=== PATIENT | male | born 1970 | race Hispanic/Latino ===

== ENCOUNTER 2018-03-08 12:09 | Emergency (ER) | payer OTHER ==
--- NOTE | 2018-03-08 14:38 | EDPHYS ---
Physician Documentation [facility] Name: Franklin Jacobsen Age: 48 yrs Sex: Male : 1970 Arrival Date: 03/08/2018 Time: 12:17 Bed 10 Private MD: ED Physician Aristeo Cortez HPI: 03/08 14:15 This 48 yrs old Male presents to ER via Ambulatory with complaints of Poison cp Elenita. 14:15 The patient's rash thought to be caused by Contact allergy. The rash is located on the cp body diffusely. The rash can be described as erythematous, papular. Onset: The symptoms/episode began/occurred 4 day(s) ago. 14:15 Associated signs and symptoms: Pertinent positives: itching, Pertinent negatives: cp burning sensation, difficulty breathing, fever, wheezing. Severity of symptoms: in the emergency department the symptoms are unchanged despite home interventions. Treatment given at home: OTC lotion/cream. Historical: - Allergies: 12:34 No Known Allergies; sg - Home Meds: 12:34 None [Active]; sg - PMHx: 12:34 None; sg - PSHx: 12:34 None; sg - Immunization history:: Adult Immunizations not up to date. - Social history:: Smoking status: Patient/guardian denies using tobacco. - Ebola Screening: : Patient negative for fever greater than or equal to 101.5 degrees Fahrenheit, and additional compatible Ebola Virus Disease symptoms Patient denies exposure to infectious person Patient denies travel to an Ebola-affected area in the 21 days before illness onset No symptoms or risks identified at this time. ROS: 14:20 Constitutional: Negative for body aches, chills, fever, poor PO intake. cp 14:20 Eyes: Negative for injury, pain, redness, and discharge. cp 14:20 ENT: Negative for drainage from ear(s), ear pain, sore throat, difficulty swallowing, difficulty handling secretions. 14:20 Cardiovascular: Negative for chest pain. 14:20 Respiratory: Negative for cough, shortness of breath, wheezing. 14:20 Abdomen/GI: Negative for abdominal pain, nausea, vomiting, and diarrhea. 14:20 Skin: Positive for rash, diffusely, Negative for abscesses, cellulitis. 14:20 Neuro: Negative for altered mental status, headache, weakness. 14:20 All other systems are negative. Exam: 14:25 Constitutional: The patient appears in no acute distress, alert, awake, non-toxic, well cp developed, well nourished. 14:25 Head/Face: Normocephalic, atraumatic. cp 14:25 Eyes: Periorbital structures: appear normal, Conjunctiva: normal, no exudate, no injection, Lids and lashes: appear normal, bilaterally. 14:25 ENT: External ear(s): are unremarkable, Nose: is normal, Mouth: Lips: moist, Oral mucosa: pink and intact, moist, Posterior pharynx: is normal, airway is patent, no erythema, no exudate, Voice: is normal. 14:25 Chest/axilla: Inspection: normal, Palpation: is normal, no crepitus, no tenderness. 14:25 Cardiovascular: Rate: normal, Rhythm: regular. 14:25 Respiratory: the patient does not display signs of respiratory distress, Respirations: normal, no use of accessory muscles, no retractions, no splinting, no tachypnea. 14:25 Abdomen/GI: Exam negative for discomfort, distension, guarding, Inspection: abdomen appears normal. 14:25 Skin: consistent with contact dermatitis, and is diffusely located. Vital Signs: 12:33 BP 147 / 82; Pulse 55; Resp 17; Pulse Ox 100% ; Weight 72.57 kg (R); Pain 6/10; sg MDM: 13:31 Patient medically screened. cp 14:30 Differential diagnosis: impetigo, varicella, allergic reaction, contact dermatitis. cp 14:37 Data reviewed: vital signs, nurses notes, and as a result, I will discharge patient. cp 14:37 Counseling: I had a detailed discussion with the patient and/or guardian regarding: the cp historical points, exam findings, and any diagnostic results supporting the discharge/admit diagnosis, to return to the emergency department if symptoms worsen or persist or if there are any questions or concerns that arise at home. Administered Medications: 14:40 Drug: SOLU-Medrol 80 mg Route: IM; Site: right deltoid; iw 15:06 Follow up: Response: No adverse reaction; Marked relief of symptoms mg2 Disposition: 03/08/18 14:38 Discharged to Home. Impression: Irritant contact dermatitis - Poison elneita. - Condition is Stable. - Discharge Instructions: Poison Elenita Dermatitis. - Prescriptions for Vistaril 25 mg Oral capsule - take 2 capsule by ORAL route At bedtime As needed as needed for itching. Do not combine with benadryl; 30 capsule. Triamcinolone Acetonide 0.5 % Topical Cream - apply 1 application by TOPICAL route 2 times per day As needed apply to areas of rash, except face, as needed for upto 7 days; 2 tube. Prednisone 20 mg Oral Tablet - take 2 tablets by ORAL route once daily for 5 days then 20 mg daily for 3 days, then 10 mg daily for 2 days, then 5 mg daily for 2 days; 15 tablet. - Work release form, Medication Reconciliation Form, Thank You Letter, Antibiotic Education, Prescription Opioid Use form. - Follow up: Private Physician; When: 1 week; Reason: rash persists. - Problem is new. - Symptoms have improved. Addendum: 03/13/2018 03:36 Co-signature as Attending Physician, Aristeo Cortez MD Available for consultation at p s1 all times . Signatures: Rui Marin RN RN sg Jada Jones RN RN iw Ralph Garcia PA PA cp Aristeo Cortez MD MD ps1 Angelo Herrera RN RN mg2 Corrections: (The following items were deleted from the chart) 03/08 15:08 14:38 03/08/2018 14:38 Discharged to Home. Impression: Irritant contact dermatitis - mg2 Poison elenita. Condition is Stable. Forms are Medication Reconciliation Form, Thank You Letter, Antibiotic Education, Prescription Opioid Use. Follow up: Private Physician; When: 1 week; Reason: rash persists. Problem is new. Symptoms have improved. cp
--- NOTE | 2018-03-08 14:38 | ER ---
Nurse's Notes [facility] Name: Franklin Jacobsen Age: 48 yrs Sex: Male : 1970 Arrival Date: 03/08/2018 Time: 12:17 Bed 10 Private MD: Diagnosis: Irritant contact dermatitis-Poison arlene Presentation: 03/08 12:31 Presenting complaint: Patient states: Rash that is red and itchy to BUE, BLE, reports sg taking OTC medication but no improvement since wednesday. Transition of care: patient was not received from another setting of care. Onset of symptoms was March 08, 2018. Risk Assessment: Do you want to hurt yourself or someone else? Patient reports no desire to harm self or others. Initial Sepsis Screen: Does the patient meet any 2 criteria? No. Patient's initial sepsis screen is negative. Does the patient have a suspected source of infection? No. Patient's initial sepsis screen is negative. Care prior to arrival: None. 12:31 Method Of Arrival: Ambulatory sg 12:31 Acuity: FERNANDO 4 sg Historical: - Allergies: 12:34 No Known Allergies; sg - Home Meds: 12:34 None [Active]; sg - PMHx: 12:34 None; sg - PSHx: 12:34 None; sg - Immunization history:: Adult Immunizations not up to date. - Social history:: Smoking status: Patient/guardian denies using tobacco. - Ebola Screening: : Patient negative for fever greater than or equal to 101.5 degrees Fahrenheit, and additional compatible Ebola Virus Disease symptoms Patient denies exposure to infectious person Patient denies travel to an Ebola-affected area in the 21 days before illness onset No symptoms or risks identified at this time. Screenin:07 Abuse screen: Denies threats or abuse. Denies injuries from another. Nutritional mg2 screening: No deficits noted. Tuberculosis screening: No symptoms or risk factors identified. Fall Risk None identified. Assessment: 15:06 General: Appears in no apparent distress. comfortable, Behavior is calm, cooperative. mg2 Pain: Denies pain. Neuro: Level of Consciousness is awake, alert, obeys commands, Oriented to person, place, time, situation. Cardiovascular: Capillary refill < 3 seconds Patient's skin is warm and dry. Respiratory: Airway is patent Respiratory effort is even, unlabored, Respiratory pattern is regular, symmetrical. GI: No signs and/or symptoms were reported involving the gastrointestinal system. : No signs and/or symptoms were reported regarding the genitourinary system. EENT: No signs and/or symptoms were reported regarding the EENT system. Derm: Reports itching. Musculoskeletal: Circulation, motion, and sensation intact. Capillary refill < 3 seconds. Vital Signs: 12:33 BP 147 / 82; Pulse 55; Resp 17; Pulse Ox 100% ; Weight 72.57 kg (R); Pain 6/10; sg ED Course: 12:17 Patient arrived in ED. mr 12:33 Triage completed. sg 12:33 Arm band placed on. sg 12:52 Jada Jones, JUAN ANTONIO is Primary Nurse. iw 13:26 Ralph Garcia PA is PHCP. cp 13:26 Aristeo Cortez MD is Attending Physician. cp 15:07 No provider procedures requiring assistance completed. Patient did not have IV access mg2 during this emergency room visit. 15:08 Patient has correct armband on for positive identification. mg2 Administered Medications: 14:40 Drug: SOLU-Medrol 80 mg Route: IM; Site: right deltoid; iw 15:06 Follow up: Response: No adverse reaction; Marked relief of symptoms mg2 Outcome: 14:38 Discharge ordered by MD. cp 15:08 Discharged to home ambulatory. mg2 15:08 Condition: stable 15:08 Discharge instructions given to patient, Instructed on discharge instructions, follow up and referral plans. medication usage, Demonstrated understanding of instructions, follow-up care, medications, Prescriptions given X 3. 15:08 Patient left the ED. mg2 Signatures: Rui Marin RN RN Kimberly Perez mr Jada Jones RN RN Ralph Garcia PA PA cp Gardose, Michele, RN RN mg2
[2018-03-08] MEDS ORDERED: METHYLPREDNISOLONE 125 MG INJ ONE (14:45)
== END 2018-03-08 15:08 | disposition home or self-care (01) ==
LOC: ER 12:09
DX: L24.7 Irritant contact dermatitis due to plants, except food (principal)
CPT/HCPCS: 96372; 99283; J2930

== ENCOUNTER 2018-07-21 14:47 | Emergency (ER) | payer OTHER ==
--- NOTE | 2018-07-21 15:46 | EDPHYS ---
Physician Documentation [facility] Name: Franklin Jacobsen Age: 48 yrs Sex: Male : 1970 Arrival Date: 07/21/2018 Time: 14:50 Bed 10 Private MD: ED Physician Pawel Vega HPI: 07/21 16:17 This 48 yrs old Male presents to ER via Ambulatory with complaints of Poison snw Elenita. 16:17 Onset: The symptoms/episode began/occurred suddenly, 3 day(s) ago, and became worse and snw became persistent. Associated signs and symptoms: Pertinent positives: itching. Modifying factors: The patient symptoms are alleviated by nothing. The patient has experienced similar episodes in the past. The patient has not recently seen a physician. 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 Historical: - Allergies: 15:00 No Known Allergies; aj - Home Meds: 15:00 None [Active]; aj - PMHx: 15:00 None; aj - PSHx: 15:00 Right hand; aj - Immunization history:: Adult Immunizations up to date. - Social history:: Smoking status: Patient/guardian denies using tobacco. - Ebola Screening: : Patient negative for fever greater than or equal to 101.5 degrees Fahrenheit, and additional compatible Ebola Virus Disease symptoms Patient denies exposure to infectious person Patient denies travel to an Ebola-affected area in the 21 days before illness onset No symptoms or risks identified at this time. ROS: 16:16 Constitutional: Negative for fever, chills, and weight loss, Eyes: Negative for injury, snw pain, redness, and discharge, ENT: Negative for injury, pain, and discharge, Neck: Negative for injury, pain, and swelling, Cardiovascular: Negative for chest pain, palpitations, and edema, Respiratory: Negative for shortness of breath, cough, wheezing, and pleuritic chest pain, Abdomen/GI: Negative for abdominal pain, nausea, vomiting, diarrhea, and constipation, Back: Negative for injury and pain, : Negative for injury, bleeding, discharge, and swelling, MS/Extremity: Negative for injury and deformity, Neuro: Negative for headache, weakness, numbness, tingling, and seizure, Psych: Negative for depression, anxiety, suicide ideation, homicidal ideation, and hallucinations. 16:16 Skin: Positive for rash, face, neck, and upper trunk . Exam: 16:13 Constitutional: This is a well developed, well nourished patient who is awake, alert, snw and in no acute distress. Eyes: Pupils equal round and reactive to light, extra-ocular motions intact. Lids and lashes normal. Conjunctiva and sclera are non-icteric and not injected. Cornea within normal limits. Periorbital areas with no swelling, redness, or edema. ENT: Nares patent. No nasal discharge, no septal abnormalities noted. Tympanic membranes are normal and external auditory canals are clear. Oropharynx with no redness, swelling, or masses, exudates, or evidence of obstruction, uvula midline. Mucous membranes moist. Chest/axilla: Normal chest wall appearance and motion. Nontender with no deformity. No lesions are appreciated. Cardiovascular: Regular rate and rhythm with a normal S1 and S2. No gallops, murmurs, or rubs. Normal PMI, no JVD. No pulse deficits. Respiratory: Lungs have equal breath sounds bilaterally, clear to auscultation and percussion. No rales, rhonchi or wheezes noted. No increased work of breathing, no retractions or nasal flaring. Abdomen/GI: Soft, non-tender, with normal bowel sounds. No distension or tympany. No guarding or rebound. No evidence of tenderness throughout. Back: No spinal tenderness. No costovertebral tenderness. Full range of motion. MS/ Extremity: Pulses equal, no cyanosis. Neurovascular intact. Full, normal range of motion. Neuro: Awake and alert, GCS 15, oriented to person, place, time, and situation. Cranial nerves II-XII grossly intact. Motor strength 5/5 in all extremities. Sensory grossly intact. Cerebellar exam normal. Normal gait. Psych: Awake, alert, with orientation to person, place and time. Behavior, mood, and affect are within normal limits. 16:13 Head/face: rash to mandibular area. 16:13 Neck: contact dermatitis appearing rash to anterior and posterior neck. 16:13 Skin: Appearance: normal except for affected area, contact dermatitis. Vital Signs: 15:00 BP 131 / 81; Pulse 67; Resp 18; Temp 97.8; Pulse Ox 98% on R/A; Weight 72.57 kg; Height aj 5 ft. 6 in. (167.64 cm); 15:00 Body Mass Index 25.82 (72.57 kg, 167.64 cm) aj MDM: 15:16 Patient medically screened. snw 16:14 Data reviewed: vital signs, nurses notes. Data interpreted: Pulse oximetry: on room air snw is 98 %. Interpretation: normal. Counseling: I had a detailed discussion with the patient and/or guardian regarding: the historical points, exam findings, and any diagnostic results supporting the discharge/admit diagnosis, the presence of at least one elevated blood pressure reading (>120/80) during this emergency department visit, the need for outpatient follow up, to return to the emergency department if symptoms worsen or persist or if there are any questions or concerns that arise at home. Special discussion: I have referred the patient to see his PCP for further evaluation of high blood pressure. Based on the history and exam findings, there is no indication for further emergent testing or inpatient evaluation. I discussed with the patient/guardian the need to see the primary care provider for further evaluation of the symptoms. discussed onset of IM vs PO steroids being the same. pt requests injection and PCN, discussed no indication for antibiotics. Pt request injection of steroids. Administered Medications: 15:59 Drug: SOLU-Medrol 125 mg {Note: Patient requested IM injection in right deltiod, even aj after warning from nurse about increased discomfort..} Route: IM; Site: right deltoid; 15:59 Drug: ZyrTEC - Cetirizine 10 mg Route: PO; aj 15:59 Drug: Pepcid 20 mg Route: PO; aj Disposition: 07/22 06:55 Co-signature as Attending Physician, Pawel Vega MD I agree with the assessment and kdr plan of care. Disposition: 07/21/18 15:46 Discharged to Home. Impression: Irritant contact dermatitis. - Condition is Stable. - Discharge Instructions: Contact Dermatitis, Hypertension. - Prescriptions for Pepcid 20 mg Oral Tablet - take 1 tablet by ORAL route every 12 hours for 10 days; 20 tablet. Zyrtec 10 mg Oral Tablet - take 1 tablet by ORAL route once daily As needed; 20 tablet. Prednisone 20 mg Oral Tablet - take 2 tablet by ORAL route once daily for 5 days; 10 tablet. - Work release form, Medication Reconciliation Form, Thank You Letter, Antibiotic Education, Prescription Opioid Use form. - Follow up: Emergency Department; When: As needed; Reason: Worsening of condition. Follow up: Private Physician; When: 2 - 3 days; Reason: Recheck today's complaints, Continuance of care, Re-evaluation by your physician. Signatures: Sofia Griffin, RN RN Pawel Lantigua MD MD [facility] [address] Nilda Gil, SAP HANA DEVELOPER-C SAP HANA DEVELOPER-Csnw Jada Jones RN RN iw Corrections: (The following items were deleted from the chart) 07/21 16:14 15:46 07/21/2018 15:46 Discharged to Home. Impression: Irritant contact dermatitis. iw Condition is Stable. Forms are Medication Reconciliation Form, Thank You Letter, Antibiotic Education, Prescription Opioid Use. Follow up: Emergency Department; When: As needed; Reason: Worsening of condition. Follow up: Private Physician; When: 2 - 3 days; Reason: Recheck today's complaints, Continuance of care, Re-evaluation by your physician. snw
--- NOTE | 2018-07-21 15:46 | ER ---
Nurse's Notes [facility] Name: Franklin Jacobsen Age: 48 yrs Sex: Male : 1970 Arrival Date: 07/21/2018 Time: 14:50 Bed 10 Private MD: Diagnosis: Irritant contact dermatitis Presentation: 07/21 14:59 Presenting complaint: Patient states: Poison arlene rash to neck and left ear for 3 days. aj Transition of care: patient was not received from another setting of care. Onset of symptoms was July 18, 2018. Risk Assessment: Do you want to hurt yourself or someone else? Patient reports no desire to harm self or others. Initial Sepsis Screen: Does the patient meet any 2 criteria? No. Patient's initial sepsis screen is negative. Does the patient have a suspected source of infection? No. Patient's initial sepsis screen is negative. Care prior to arrival: None. 14:59 Method Of Arrival: Ambulatory 14:59 Acuity: FERNANDO 4 aj Triage Assessment: 15:00 General: Appears in no apparent distress. comfortable, Behavior is calm, cooperative, aj appropriate for age. Pain: Denies pain. Neuro: Level of Consciousness is awake, alert, obeys commands, Oriented to person, place, time, situation, Appropriate for age. Respiratory: Airway is patent Respiratory effort is even, unlabored, Respiratory pattern is regular, symmetrical. Derm: Skin is intact, Skin is Rash noted that is itchy, red, vesicular, on neck, chest and left ear. Historical: - Allergies: 15:00 No Known Allergies; aj - Home Meds: 15:00 None [Active]; aj - PMHx: 15:00 None; aj - PSHx: 15:00 Right hand; aj - Immunization history:: Adult Immunizations up to date. - Social history:: Smoking status: Patient/guardian denies using tobacco. - Ebola Screening: : Patient negative for fever greater than or equal to 101.5 degrees Fahrenheit, and additional compatible Ebola Virus Disease symptoms Patient denies exposure to infectious person Patient denies travel to an Ebola-affected area in the 21 days before illness onset No symptoms or risks identified at this time. Screenin:10 Abuse screen: Denies threats or abuse. Denies injuries from another. Nutritional iw screening: No deficits noted. Tuberculosis screening: No symptoms or risk factors identified. Fall Risk None identified. Vital Signs: 15:00 BP 131 / 81; Pulse 67; Resp 18; Temp 97.8; Pulse Ox 98% on R/A; Weight 72.57 kg; Height aj 5 ft. 6 in. (167.64 cm); 15:00 Body Mass Index 25.82 (72.57 kg, 167.64 cm) aj ED Course: 14:50 Patient arrived in ED. rg4 15:00 Triage completed. aj 15:00 Arm band placed on right wrist. Patient placed in an exam room. aj 15:00 Patient has correct armband on for positive identification. iw 15:16 Nilda Gil FNP-C is PHCP. snw 15:16 Pawel Vega MD is Attending Physician. snw 15:51 Sofia Griffin, RN is Primary Nurse. aj 16:14 No provider procedures requiring assistance completed. Patient did not have IV access iw during this emergency room visit. Administered Medications: 15:59 Drug: SOLU-Medrol 125 mg {Note: Patient requested IM injection in right deltiod, even aj after warning from nurse about increased discomfort..} Route: IM; Site: right deltoid; 15:59 Drug: ZyrTEC - Cetirizine 10 mg Route: PO; aj 15:59 Drug: Pepcid 20 mg Route: PO; aj Outcome: 15:46 Discharge ordered by . snw 16:13 Discharged to home ambulatory. iw 16:13 Condition: good 16:13 Discharge instructions given to patient, Instructed on discharge instructions, follow up and referral plans. medication usage, Demonstrated understanding of instructions, follow-up care, medications, Prescriptions given X 3. 16:14 Patient left the ED. iw Signatures: Sofia Griffin, RN RN Nilda Myers FNP-C HOME SERVICE DEMONSTRATOR-Jada Ceballos, RN Aurora Wong rg4
[2018-07-21] MEDS ORDERED: FAMOTIDINE 20 MG TAB ONE (16:09)
[2018-07-21] MEDS ORDERED: METHYLPREDNISOLONE 125 MG INJ ONE (16:09)
[2018-07-21] MEDS ORDERED: CETIRIZINE HCL 5 MG TABLET ONE (16:09)
== END 2018-07-21 16:14 | disposition home or self-care (01) ==
LOC: ER 14:47
DX: L24.9 Irritant contact dermatitis, unspecified cause (principal)
CPT/HCPCS: 96372; 99283; J2930

== ENCOUNTER 2019-07-22 21:17 | Emergency (ER) | payer OTHER ==
[2019-07-22] MEDS ORDERED: METHYLPREDNISOLONE 125 MG INJ ONE (21:51)
[2019-07-22] MEDS ORDERED: FAMOTIDINE 20 MG TAB ONE (21:51)
[2019-07-22 22:38] VITALS: BP 181/94; TEMP 98.3; O2SAT 99
--- NOTE | 2019-07-24 18:21 | ER ---
Nurse's Notes [facility] Name: Franklin Jacobsen Age: 49 yrs Sex: Male : 1970 Arrival Date: 07/22/2019 Time: 21:22 Bed 13 Private MD: Diagnosis: Irritant contact dermatitis due to plants, except food-poison elenita Presentation: 07/21 21:33 Chief complaint: Patient states: Reports he was exposed to poison Elenita three days ago, ea pt reports his rash worsened today. States "this happened to me before and I had to get shots". Coronavirus screen: Proceed with normal triage. Ebola Screen: No symptoms or risks identified at this time. Initial Sepsis Screen: Does the patient meet any 2 criteria? No. Patient's initial sepsis screen is negative. Does the patient have a suspected source of infection? No. Patient's initial sepsis screen is negative. Risk Assessment: Do you want to hurt yourself or someone else? Patient reports no desire to harm self or others. Onset of symptoms was July 22, 2019. 21:33 Method Of Arrival: Ambulatory ea 21:33 Acuity: FERNANDO 4 ea Historical: - Allergies: 21:35 No Known Allergies; ea - Home Meds: 21:35 None [Active]; ea - PMHx: 21:35 None; ea - PSHx: 21:35 Right hand; ea - Immunization history:: Adult Immunizations not up to date. - Social history:: Smoking status: Patient denies any tobacco usage or history of. Screenin:32 Abuse screen: Denies threats or abuse. Nutritional screening: No deficits noted. ea Tuberculosis screening: No symptoms or risk factors identified. Fall Risk None identified. Assessment: 21:36 General: Appears in no apparent distress. Behavior is calm, cooperative, appropriate ea for age. Pain: Denies pain. Neuro: Level of Consciousness is awake, alert, obeys commands, Oriented to person, place, time, situation. Cardiovascular: Patient's skin is warm and dry. Respiratory: Airway is patent Respiratory effort is even, unlabored, Respiratory pattern is regular, symmetrical. Derm: Rash noted that is itchy, on anterior aspect of left lateral abdomen, right arm and left arm. 22:15 Reassessment: Patient and/or family updated on plan of care and expected duration. Pain ea level reassessed. Patient is alert, oriented x 3, equal unlabored respirations, skin warm/dry/pink. 22:26 Reassessment: Patient and/or family updated on plan of care and expected duration. Pain ea level reassessed. Patient is alert, oriented x 3, equal unlabored respirations, skin warm/dry/pink. Discharge instruction given to patient, verbalized the understanding of instruction. Pt left ED ambulatory tolerating well. Vital Signs: 21:32 BP 181 / 94; Pulse 60; Resp 18; Temp 98.3; Pulse Ox 99% ; Weight 68.04 kg; Height 5 ft. ea 6 in. (167.64 cm); 21:32 Body Mass Index 24.21 (68.04 kg, 167.64 cm) ea ED Course: 21:22 Patient arrived in ED. bp1 21:29 Ralph Garcia PA is PHCP. cp 21:29 Denys Lopez MD is Attending Physician. cp 21:31 Sugey Solomon RN is Primary Nurse. ea 21:32 Patient has correct armband on for positive identification. Bed in low position. Call ea light in reach. Side rails up X 1. Pulse ox on. NIBP on. 21:32 Arm band placed on right wrist. Patient placed in an exam room, on a stretcher, on ea pulse oximetry. 21:34 Triage completed. ea 22:25 No provider procedures requiring assistance completed. Patient did not have IV access ea during this emergency room visit. Administered Medications: 21:47 Drug: SOLU-Medrol 125 mg Route: IM; Site: right deltoid; ea 22:25 Follow up: Response: No adverse reaction ea 21:47 Drug: Pepcid 20 mg Route: PO; ea 22:25 Follow up: Response: No adverse reaction ea Outcome: 22:20 Discharge ordered by . cp 22:26 Discharged to home ambulatory. ea 22:26 Condition: stable 22:26 Discharge instructions given to patient, Instructed on discharge instructions, follow up and referral plans. medication usage, Demonstrated understanding of instructions, follow-up care, medications, Prescriptions given X 2. 22:27 Patient left the ED. ea Signatures: Ralph Garcia PA PA cp Antunez, Elena, RN RN Eloisa Esparza bp1
--- NOTE | 2019-07-24 18:22 | EDPHYS ---
Physician Documentation [facility] Name: Franklin Jacobsen Age: 49 yrs Sex: Male : 1970 Arrival Date: 07/22/2019 Time: 21:22 Bed 13 Private MD: ED Physician Denys Lopez HPI: 07/21 21:40 This 49 yrs old Male presents to ER via Ambulatory with complaints of Posion cp Elenita. 21:40 The patient's rash thought to be caused by exposed to poison elenita. cp 21:40 The rash is located on the body diffusely. The rash can be described as erythematous, cp papular. 21:40 Onset: The symptoms/episode began/occurred 3 day(s) ago, and became worse today. cp 21:40 Associated signs and symptoms: Pertinent positives: itching, Pertinent negatives: cp difficulty breathing, fever, swelling of lips, swelling of throat, swelling of tongue, wheezing. Treatment given at home: OTC lotion/cream. Historical: - Allergies: 21:35 No Known Allergies; ea - Home Meds: 21:35 None [Active]; ea - PMHx: 21:35 None; ea - PSHx: 21:35 Right hand; ea - Immunization history:: Adult Immunizations not up to date. - Social history:: Smoking status: Patient denies any tobacco usage or history of. ROS: 22:00 Skin: Positive for rash, of the back, chest, abdomen, right arm and left arm. cp 22:00 Eyes: Negative for injury, pain, redness, and discharge. cp 22:00 Constitutional: Negative for body aches, chills, fever. 22:00 ENT: Negative for sore throat, difficulty swallowing, difficulty handling secretions. 22:00 Cardiovascular: Negative for chest pain. 22:00 Respiratory: Negative for cough, shortness of breath, wheezing. 22:00 Abdomen/GI: Negative for abdominal pain, nausea and vomiting. 22:00 All other systems are negative. Exam: 22:05 Constitutional: The patient appears in no acute distress, alert, awake, non-toxic, well cp developed, well nourished. 22:05 Head/Face: Normocephalic, atraumatic. cp 22:05 Eyes: Periorbital structures: appear normal, Conjunctiva: normal, no exudate, no injection, Lids and lashes: appear normal, bilaterally. 22:05 Chest/axilla: Palpation: is normal, no crepitus, no tenderness. 22:05 Cardiovascular: Rate: normal, Rhythm: regular. 22:05 Respiratory: the patient does not display signs of respiratory distress, Respirations: normal, no use of accessory muscles, no retractions, labored breathing, is not present, Breath sounds: are clear throughout, no decreased breath sounds, no wheezing. 22:05 Skin: rash can be described as excoriated, urticarial, on the back, chest, abdomen, right arm and left arm. Vital Signs: 21:32 BP 181 / 94; Pulse 60; Resp 18; Temp 98.3; Pulse Ox 99% ; Weight 68.04 kg; Height 5 ft. ea 6 in. (167.64 cm); 21:32 Body Mass Index 24.21 (68.04 kg, 167.64 cm) ea MDM: 21:30 Patient medically screened. cp 22:19 Data reviewed: vital signs, nurses notes, and as a result, I will discharge patient. cp Administered Medications: 21:47 Drug: SOLU-Medrol 125 mg Route: IM; Site: right deltoid; ea 22:25 Follow up: Response: No adverse reaction ea 21:47 Drug: Pepcid 20 mg Route: PO; ea 22:25 Follow up: Response: No adverse reaction casi Disposition: 07/22 07:10 Co-signature as Attending Physician, Denys Lopez MD. [email or web address] Disposition: 07/22/19 22:20 Discharged to Home. Impression: Irritant contact dermatitis due to plants, except food - poison elenita. - Condition is Stable. - Discharge Instructions: Contact Dermatitis. - Prescriptions for Hydrocortisone 0.5 % Topical Cream - apply 1 application by TOPICAL route every 12 hours for 7 days apply to areas of rash as directed except face; 60 gram. Prednisone 20 mg Oral Tablet - take 2 tablet by ORAL route once daily for 5 days; 10 tablet. - Medication Reconciliation Form, Thank You Letter, Antibiotic Education, Prescription Opioid Use form. - Follow up: Private Physician; When: 2 - 3 days; Reason: Worsening of condition. - Problem is new. - Symptoms have improved. Signatures: Ralph Garcia PA PA cp Antunez, Elena, RN RN Yeison Hernandeze, MD MD [email or web address] Corrections: (The following items were deleted from the chart) 07/21 22:27 22:20 07/22/2019 22:20 Discharged to Home. Impression: Irritant contact dermatitis due ea to plants, except food - poison elenita. Condition is Stable. Forms are Medication Reconciliation Form, Thank You Letter, Antibiotic Education, Prescription Opioid Use. Follow up: Private Physician; When: 2 - 3 days; Reason: Worsening of condition. Problem is new. Symptoms have improved. cp
== END 2019-07-22 22:27 | disposition home or self-care (01) ==
LOC: ER 21:17
DX: L24.7 Irritant contact dermatitis due to plants, except food (principal)
CPT/HCPCS: 96372; 99283; J2930